=== PATIENT | male | born 1960 | race Caucasian/White ===

== ENCOUNTER 2023-04-21 08:12 | Emergency (ER) | payer BC, SELFPAY ==
[2023-04-21] VITALS (9 sets, daily range): BP systolic 125–152; BP diastolic 62–93; PULSE 81–117; RESP 19–40; TEMP 36.6–37.6; O2SAT 90–97; BMI 27.3
--- NOTE | 2023-04-21 08:18 | ECG_ITS ---
APPROVED REPORT Exam: Resting ECG HR:109 bpm ECG Measurements Heart Rate 109 AXES NM 151 P 51 QRSd 93 QRS 59 QT 305 T 46 QTc 369 Conclusion SINUS TACHYCARDIA ABNORMAL RHYTHM ECG UNCONFIRMED REPORT Electronically signed by : Duane Yarbrough MD 04/21/2023 21:19:05
--- NOTE | 2023-04-21 08:23 | PC.NURSE ---
Dr. Howard at BS for pt eval
--- NOTE | 2023-04-21 08:25 | XR_ITS ---
PROCEDURE INFORMATION: Exam: XR Chest Exam date and time: 04/21/2023 8:27 AM Age: 62 years old Clinical indication: Pain; On breathing; Additional info: SOB, tachy TECHNIQUE: Imaging protocol: Radiologic exam of the chest. Views: 1 view. COMPARISON: No relevant prior studies available. FINDINGS: Lungs: There is opacity at the left lung base which may represent effusion and/or parenchymal disease. Pleural spaces: Unremarkable. No pleural effusion. No pneumothorax. Heart/Mediastinum: Unremarkable. No cardiomegaly. Bones/joints: Unremarkable. IMPRESSION: Left basilar opacity may represent effusion and/or parenchymal disease.
--- NOTE | 2023-04-21 08:29 | HMH.EDGENADL ---
Discharge Plan Disposition Patient Disposition: Home, Self-Care Prescriptions Prescriptions: New oxycodone 5 mg tablet 5 mg PO Q6H PRN (Reason: severe pain (scale score 7-10)) Qty: 20 0RF Referrals Follow up/Referrals: Abby Sarkar [Primary Care Provider] - See instructions Robert Grossman MD [Staff Physician] - See instructions Activity Restrictions/Add. Instructions Additional Instructions/Restrictions: At this time it was felt you are safe to be discharged home. If new or worsening symptoms please do not hesitate to return the emergency department. Please take your medications as prescribed and call and schedule an appointment with Dr. Grossman as soon as you are able. Clinical Impressions Clinical Impression: Abdominal pain, LUQ, Metastatic disease, Hematuria, Left renal mass Discharge ED Provider: Lei Howard General Adult HPI General Chief complaint: Shortness of Breath/Dyspnea Stated complaint: SOA, cough, congestion, lung pain Time Seen by Provider: 04/21/23 08:16 Mode of Arrival: Ambulatory Source of Information: Patient Limitations: No Limitations Description of Symptoms (Recalled from ER Triage Doc. by RN): Pt reports SOA, productive cough x2 days. Possible fever at home 2 days ago with chills and sweats. Pt also reports pain in L rib area with inspiration. History of Present Illness HPI narrative: Patient is a 62-year-old male with no comorbidities who presents emergency department for evaluation of respiratory distress. Onset was acute, over the last 48 hours. Cough, shortness of breath, left sided chest pain with deep inspiration. Patient is a chronic smoker, takes no medications at home. No other acute complaints at this time. Related Data Previous Rx's Medication Instructions Recorded oxycodone 5 mg tablet 5 mg PO Q6H PRN severe pain (scale 04/21/23 score 7-10) #20 tabs Allergies Allergy/AdvReac Type Severity Reaction Status Date / Time No Known Allergies Allergy Verified 04/21/23 08:28 [facility] Disclaimer: The information contained in this section may have been updated after the patient was seen, as this information can be updated by other users. Social History Smoking Status: Current every day smoker alcohol intake: never current occupational status: other Travel in the last 8 weeks: None ROS Obtained: Yes All systems reviewed & no additional complaints except as documented Physical Exam General General appearance: alert and in no apparent distress Head Head exam: atraumatic and normocephalic Eye Eye exam: Present PERRL and EOMI ENT ENT exam: Present mucous membranes moist Neck Neck exam: Present normal inspection Chest Chest inspection: Present normal inspection and symmetric chest wall rise Respiratory Respiratory exam: Present respiratory distress, wheezes, accessory muscle use, prolonged expiratory phase and other (Tachypnea) Cardiovascular Cardiovascular exam: Present normal rhythm and tachycardia Abdominal Exam Abdominal exam: Present soft and tenderness (Mild, left upper quadrant) Extremities Exam Extremities exam: Present normal inspection and other (No pitting edema) Neurological Exam Neurological exam: Present alert Psychiatric Psychiatric exam: Present normal affect Skin Skin exam: Present warm and dry Medical Decision Making Barry Inquiry Pt receiving controlled substance: No Vital Signs: 04/21/23 08:13 04/21/23 08:30 04/21/23 09:30 Temperature 99.6 F Temperature Source Oral Pulse Rate 105 H 117 H Pulse Rate [Right Radial] 107 H Respiratory Rate 40 H 40 H 21 Blood Pressure 134/83 136/82 Blood Pressure [Right Arm] 152/93 H Blood Pressure Mean [Right Arm] 112 Blood Pressure Source [Right Arm] Automatic Cuff Blood Pressure Position [Right Arm] Sitting 02 Sat by Pulse Oximetry 90 L 95 95 Oxygen Delivery Method Room Air Nasal Cannula Nasal Cannula Oxygen Flow Rate (LPM) 2 2 04/21/23 10:01 04/21
--- NOTE | 2023-04-21 08:29 | PC.NURSE ---
notified RT of vbg order or neb treatments
--- NOTE | 2023-04-21 08:31 | PC.NURSE ---
RAD at for CXR
--- NOTE | 2023-04-21 08:34 | PC.NURSE ---
RT at BS to administer neb treatment
[2023-04-21 08:38] LABS: Coronavirus 19, PCR Not Detected (NotDetected); Influenza A, PCR Not Detected (NotDetected); Influenza B, PCR Not Detected (NotDetected)
[2023-04-21 08:41] LABS: Basophils % 0.2 % (0.1-2.0); Eosinophils % 0.2 % (0.1-12.0); Hematocrit 39.4 % (42.0-52.0); Hemoglobin 12.5 g/dL (14.1-18.0); Lymphocytes # 1.4 K/mm3 (0.7-4.5); Lymphocytes % 9.4 % (10-50); Mean Corpuscular HGB Conc 31.8 g/dL (31.8-35.4); Mean Corpuscular Hemoglobin 25.4 pg (27.0-31.2); Mean Corpuscular Volume 79.9 fl (80-94); Mean Platelet Volume 7.8 fl (7.4-10.4); Monocytes # 1.1 K/mm3 (0.1-1.0); Monocytes % 7.7 % (1.7-9.3); Neutrophils # 11.9 K/mm3 (1.8-7.8); Neutrophils % 82.5 % (37.0-80.0); Platelet Count 434 K/mm3 (142-424); Red Blood Count 4.93 M/mm3 (4.60-6.20); Red Cell Distribution Width 16.3 % (11.5-17.5); White Blood Count 14.4 K/mm3 (4.8-10.8)
[2023-04-21 08:45] LABS: VBG Base Excess -3.2 mmol/L (-2.4-2.3); VBG HCO3 22.1 mmol/L (23-30); VBG Oxygen Saturation 81.9 % (50-70); VBG PCO2 39.1 mmol/L (35-51); VBG PH 7.37 mmol/L (7.31-7.41); VBG PO2 45.4 mmol/L (28-40); VBG Total CO2 23.3 mmol/L (23-27)
--- NOTE | 2023-04-21 08:45 | CT_ITS ---
PROCEDURE INFORMATION: Exam: CTA Chest With Contrast Exam date and time: 04/21/2023 10:27 AM Age: 62 years old Clinical indication: Shortness of breath; Additional info: Cp/nita TECHNIQUE: Imaging protocol: Computed tomographic angiography of the chest with contrast. Exam focused on the arteries. 3D rendering (Not supervised by radiologist): MIP and/or 3D reconstructed images were created by the technologist. Radiation optimization: All CT scans at this facility use at least one of these dose optimization techniques: automated exposure control; mA and/or kV adjustment per patient size (includes targeted exams where dose is matched to clinical indication); or iterative reconstruction. Contrast material: ISOVUE; Contrast volume: 70 ml; Contrast route: INTRAVENOUS (IV); REPORTING DATA: Count of CT and Cardiac NM exams in prior 12 months: This patient has received 0 known CTs and 0 known cardiac nuclear medicine studies in the 12 months prior to the current study. COMPARISON: CR XR CHEST PORTABLE 04/21/2023 8:27 AM FINDINGS: Pulmonary arteries: There is somewhat suboptimal enhancement of the pulmonary arterial tree. No central or lobar filling defect is identified. Aorta: Unremarkable. No aortic aneurysm. No aortic dissection. Lungs: There is atelectasis noted at the left lung base. There is a 6 mm calcified granuloma in the right lower lobe along the diaphragm. In the left lower lobe there is an 11 x 8 mm noncalcified nodule. Pleural spaces: Unremarkable. No pneumothorax. No pleural effusion. Heart: Unremarkable. No cardiomegaly. No pericardial effusion. Coronary arteries: Coronary artery calcification is present. Lymph nodes: No thoracic lymphadenopathy is identified. Left hilar calcification likely represents granulomatous disease. Bones/joints: Degenerative changes are noted in the bones. Upper abdomen: There are multiple necrotic masses noted in the left upper quadrant, most notably inseparable from the left kidney which is incompletely imaged measuring at least 10.8 x 8.1 cm which appears to encase the renal artery. There is invading the inferior aspect of the spleen a macrolobulated necrotic mass measuring 10.1 x 8.2 x 11.2 cm. In the pancreatic tail there is a 3.5 x 3.3 x 3.0 cm mass. There is a 3.4 x 2.9 x 4.2 cm nodule. Celiac lymphadenopathy is noted measuring up to 13 mm in maximum short axis dimension. Multiple hepatic cysts are noted. IMPRESSION: Suboptimal assessment for pulmonary embolism. No central filling defect. Left basilar atelectasis. Left upper quadrant findings compatible with malignancy including macrolobulated enhancing and necrotic masses inseparable from the left kidney, spleen, pancreatic tail and left adrenal as well as celiac lymphadenopathy. 11 mm left lower lobe pulmonary nodule concerning for metastatic disease given the findings in the left upper quadrant. THIS REPORT CONTAINS FINDINGS THAT MAY BE CRITICAL TO PATIENT CARE. The findings were verbally communicated via telephone conference with JOSÉ JACKSON at 10:52 AM EST on 04/21/2023. The findings were acknowledged and understood. COMMENTS: Consistent with the [place]'s Incidental Findings Committee white paper (J Am Alessandro Radiol 2018): Any incidental renal lesion less than 1 cm or classified as too small to characterize, or any incidental cystic renal lesion characterized as simple-appearing, is likely benign. No follow-up imaging is recommended for these lesions per consensus recommendations based on imaging criteria.
[2023-04-21 08:47] LABS: Alanine Aminotransferase 29 U/L (12-78); Alkaline Phosphatase 124 U/L (38-126); Anion Gap 14.5 mEq/L (5-15); Aspartate Amino Transferase 37 U/L (17-59); Bilirubin,Total 0.8 mg/dl (0.2-1.3); Blood Urea Nitrogen 16 mg/dl (9-20); Calcium 9.2 mg/dl (8.4-10.2); Carbon Dioxide 26 mmol/L (22.0-30.0); Chloride 98 mmol/L (98-107); Creatinine Clearance Estimated 76 mL/min (50-200); Estimated Glomerular Filt Rate 61 ml/min (>60); GFR (African American) 74 ML/MIN (>60); Globulin 3.9 g/dL (1.3-3.2); Glucose 115 mg/dl (74-100); Lactic Acid 1.1 mmol/L (0.7-2.1); Potassium 3.5 mmoL/L (3.5-5.1); Sodium 135 mmol/L (136-145); Total Protein,Serum 7.9 g/dl (6.3-8.2)
--- NOTE | 2023-04-21 08:51 | PC.NURSE ---
Lab at bedside collecting 2nd set of blood cultures. I placed blue arm band on pt.
[2023-04-21 08:52] LABS: D-Dimer 2.42 ug/mL (0.0-0.5)
[2023-04-21 09:00] LABS: NT Pro Brain Natriuretic Pep. 457 pg/mL (0-125)
--- NOTE | 2023-04-21 09:11 | PC.NURSE ---
Pt gone to RAD via wheelchair
--- NOTE | 2023-04-21 09:17 | PC.NURSE ---
Pt returned from RAD to be pre-medicated before his CT
[2023-04-21 09:24] LABS: Troponin I < 0.01 ng/ml (0.00-0.034)
--- NOTE | 2023-04-21 10:21 | PC.NURSE ---
Pt going to RAD via wheelchair
--- NOTE | 2023-04-21 10:49 | CT_ITS ---
PROCEDURE INFORMATION: Exam: CT Abdomen And Pelvis With Contrast Exam date and time: 04/21/2023 11:19 AM Age: 62 years old Clinical indication: Abdominal pain; Additional info: Luq pain, abnl imaging TECHNIQUE: Imaging protocol: Computed tomography of the abdomen and pelvis with contrast. Radiation optimization: All CT scans at this facility use at least one of these dose optimization techniques: automated exposure control; mA and/or kV adjustment per patient size (includes targeted exams where dose is matched to clinical indication); or iterative reconstruction. Contrast material: ISOVUE; Contrast volume: 75 ml; Contrast route: IV; REPORTING DATA: Count of CT and Cardiac NM exams in prior 12 months: This patient has received 0 known CTs and 0 known cardiac nuclear medicine studies in the 12 months prior to the current study. COMPARISON: CT ANGIO CHEST PE PROTOCOL 04/21/2023 10:27 AM FINDINGS: Lungs: 9 mm pulmonary nodule left lower lung zone again noted. Scattered subsegmental atelectasis left lung base unchanged. Diaphragm: Small hiatal hernia. Liver: Multiple hypodensities within the liver many of which represent benign liver cysts. There are smaller lesions too small to adequately characterize at this time. Gallbladder and bile ducts: Normal. No calcified stones. No ductal dilation. Pancreas: 3 cm circumscribed mass arising from the tail the pancreas with some internal the [place] cysts or cystic degeneration that may also be metastatic in nature with primary pancreatic malignancy to be excluded. Spleen: Normal. No splenomegaly. Adrenal glands: 4 cm circumscribed heterogeneous left adrenal mass likely metastatic in nature. Right adrenal gland is unremarkable. Kidneys and ureters: 10 cm irregular shaped heterogeneous left renal mass with areas of cystic degeneration or necrosis arising from the mid-upper pole consistent with renal cell carcinoma. There is some adjacent perinephric nodularity likely metastatic in nature. Right kidney is unremarkable. Stomach and bowel: Unremarkable. No obstruction. No mucosal thickening. Appendix: No evidence of appendicitis. Intraperitoneal space: Unremarkable. No free air. No significant fluid collection. Vasculature: Unremarkable. No abdominal aortic aneurysm. Lymph nodes: Mild-moderate retroperitoneal lymphadenopathy measuring up to 2 cm likely metastatic in nature. Urinary bladder: Unremarkable as visualized. Reproductive: Unremarkable as visualized. Bones/joints: There are no acute bony abnormalities or suspicious bone lesions detected. Soft tissues: Unremarkable. Other findings: 11 cm irregular shaped necrotic mass anterior to the spleen likely metastatic in nature. IMPRESSION: 1. 10 cm necrotic left renal mass highly suspicious for renal cell carcinoma with evidence of perinephric metastasis. 2. Large necrotic mass left upper quadrant anterior to the spleen likely metastatic in nature. 3. 3 cm circumscribed mass arising the tail the pancreas that may be primary or metastatic in nature. 4. 4 cm left adrenal mass likely metastatic in nature. 5. Mild-moderate retroperitoneal lymphadenopathy also likely metastatic in nature. 6. Multiple benign-appearing liver cysts with additional smaller hypodensities within the liver too small to adequately characterize at this time. 7. 9 mm pulmonary nodule left lower lobe possibly metastatic in nature. COMMENTS: Consistent with the [employer]'s Incidental Findings Committee white paper (J Am Alessandro Radiol 2018): Any incidental renal lesion less than 1 cm or classified as too small to characterize, or any incidental cystic renal lesion characterized as simple-appearing, is likely benign. No follow-
--- NOTE | 2023-04-21 10:52 | PC.NURSE ---
ER MD Howard spoke with Vrad at this time
--- NOTE | 2023-04-21 10:54 | PC.NURSE ---
ER MD Howard at discussing POC and test results with pt and family member
--- NOTE | 2023-04-21 10:58 | PC.NURSE ---
notified rad staff of new ct order on pt
[2023-04-21 11:04] LABS: Uric Acid 3.9 mg/dl (3.5-8.5)
[2023-04-21 11:07] LABS: C-Reactive Protein 229.8 mg/L (0-4)
--- NOTE | 2023-04-21 11:17 | PC.NURSE ---
Pt gone to RAD via wheelchair
[2023-04-21 11:27] LABS: Microscopic, Urine URINE MICROSCOPIC (MICROSCOPIC)
[2023-04-21 11:48] LABS: Appearance,Urine CLEAR (Clear); Bilirubin,Urine Negative (Negative); Blood, Urine 2+ (Negative); Color,Urine YELLOW (Yellow); Glucose,Urine (UA) Negative (Negative); Ketones,Urine Negative (Negative); Leukocyte Esterase,Urine Negative (Negative); Nitrate,Urine Negative (Negative); Protein,Urine TRACE (Negative); Specific Gravity, Urine <= 1.005 (1.005-1.030); Urobilinogen,Urine 0.2 EU/dl (0.2)
[2023-04-21 11:49] LABS: Bacteria,Urine 1+ /lpf; RBC,Urine 20-50 #/hpf (0-3); Squamous Epithelial Cell,Urine Occasional #/hpf (0-5); WBC,Urine Occasional #/hpf (0-3)
[2023-04-21 12:01] LABS: Lactate Dehydrogenase 230 U/L (313-618)
[2023-04-21 12:18] LABS: Troponin I < 0.01 ng/ml (0.00-0.034)
--- NOTE | 2023-04-21 12:21 | PC.NURSE ---
Spoke with Ernestina at [facility]. Advised she would get the information to the provider and call back.
--- NOTE | 2023-04-21 12:44 | PC.NURSE ---
Dr. Howard speaking with Dr. Mendez at for possible pt transfer
--- NOTE | 2023-04-22 18:01 | PC.NURSE ---
Addendum entered by Kenzie Villeda RN 04/22/23 18:07: reported to Dr. Howard that pt is feeling great, better than he has in months , reports pain medication is helping. Original Note: 1610-Dr. Howard notified of positive preliminary blood cultures on pt. approx 1640- Dr. Howard spoke with pt via phone, Dr. Howard reports verbalized understanding of results and recommendations.
--- NOTE | 2023-04-28 11:00 | PC.NURSE ---
final bc results showed clostridium perfringens, contacted pt, spoke with who states they have had repeat bc drawn on the at that time they switched antibiotic to clindamycin and are fu with PCP on Sunday, aware, no further action.
== END 2023-04-21 14:05 | disposition home or self-care (01) ==
PROVIDERS: Emergency Provider Emergency Medicine; PCP Nurse Practitioner Family
DX: R06.03 Acute respiratory distress (principal); R10.12 Left upper quadrant pain; R06.02 Shortness of breath; R09.1 Pleurisy; R00.0 Tachycardia, unspecified; R93.5 Abnormal findings on diagnostic imaging of other abdominal regions, including retroperitoneum; N28.89 Other specified disorders of kidney and ureter; R31.9 Hematuria, unspecified; R91.8 Other nonspecific abnormal finding of lung field; R05.9 Cough, unspecified; R09.81 Nasal congestion; F17.210 Nicotine dependence, cigarettes, uncomplicated
CPT/HCPCS: 36415; 71045; 71275; 74177; 80053; 81001; 82803; 83605; 83615; 83880; 84484; 84550; 85025; 85378; 86140; 87040; 87636; 93005; 96365; 96367; 96375; 99285; J0456; J0696; Q9967

== ENCOUNTER 2023-04-22 19:07 | Emergency (ER) | payer BC, SELFPAY ==
--- NOTE | 2023-04-22 19:26 | HMH.EDGENADL ---
Discharge Plan Disposition Patient Disposition: Home, Self-Care Prescriptions Prescriptions: New clindamycin HCl 150 mg capsule 450 mg PO Q6H 10 Days Qty: 120 0RF No Action oxycodone 5 mg tablet 5 mg PO Q6H PRN (Reason: severe pain (scale score 7-10)) Qty: 20 0RF azithromycin 500 mg tablet See Rx Instructions .ROUTE .COMPLEX Qty: 9 0RF Rx Instructions: For 250 mg dose pack: take 500 mg today (day 1), then 250 mg for 4 days (days 2-5) albuterol sulfate 90 mcg/actuation HFA aerosol inhaler 4 inh inhalation Q4H PRN (Reason: shortness of breath or wheezing) Qty: 8.5 0RF Rx Instructions: until breathing returns to target peak flow/parameters [id number]-[id number]-XM [Bromfed DM] 2-30-10 mg/5 mL syrup 5 ml PO Q6H PRN (Reason: cold symptoms) Qty: 118 0RF Referrals Follow up/Referrals: Abby Sarkar [Primary Care Provider] - See instructions Activity Restrictions/Add. Instructions Additional Instructions/Restrictions: It was recommended that you would be admitted to the hospital today. If new or worsening symptoms please do not hesitate to return the emergency department. Please take your antibiotics as they are prescribed and follow-up with your family doctor as soon as you are able this week for continued blood work and evaluation. Clinical Impressions Clinical Impression: Bacteremia, Leukocytosis, Abnormal blood creatinine level Discharge ED Provider: Lei Howard General Adult HPI General Chief complaint: Recheck/Abnormal Lab/Rx Stated complaint: called by Dr. Hwoard -lab results Time Seen by Provider: 04/22/23 19:17 History of Present Illness HPI narrative: Patient is a 62-year-old male with recently diagnosed intra-abdominal mass who presents emergency department for positive blood cultures. I took care of Mr. Pablo last night, he presented with left upper quadrant pain where work-up was ultimately unremarkable with intra-abdominal malignancy with metastasis for which pain control was achieved and he was discharged with outpatient oncology follow-up as well as a course of azithromycin for his presumed bronchitis. Since then patient's pain has been well controlled, he states that he feels much better than yesterday. However his preliminary blood culture result shows gram-positive rods in both anaerobic bottles. Due to this I instructed him to present here for IV antibiotics until cultures have speciated. No acute complaints at this time. Related Data Previous Rx's Medication Instructions Recorded albuterol sulfate 90 mcg/actuation 4 inh inhalation Q4H PRN shortness 04/21/23 aerosol inhaler of breath or wheezing #8.5 grams azithromycin 500 mg tablet See Rx Instructions PO .COMPLEX #9 04/21/23 tabs gfqwiovkgpyemuw-fodlgdciznwclst-TL 5 ml PO Q6H PRN cold symptoms #118 04/21/23 2 mg-30 mg-10 mg/5 mL oral syrup mL (Bromfed DM) oxycodone 5 mg tablet 5 mg PO Q6H PRN severe pain (scale 04/21/23 score 7-10) #20 tabs clindamycin HCl 150 mg capsule 450 mg PO Q6H 10 days #120 caps 04/22/23 Allergies Allergy/AdvReac Type Severity Reaction Status Date / Time No Known Allergies Allergy Verified 04/21/23 08:28 [facility] Disclaimer: The information contained in this section may have been updated after the patient was seen, as this information can be updated by other users. Social History (Updated 04/21/23 @ 13:35 by Lei Howard MD) Smoking Status: Current every day smoker alcohol intake: never current occupational status: other Travel in the last 8 weeks: None ROS Obtained: Yes Systems reviewed as appropriate & no additional complaints except as documented Physical Exam General General appearance: alert and in no apparent distress Head Head exam: atraumatic and normocephalic Eye Eye exam: Present PERRL and EOMI ENT ENT exam: Present mucous membranes moist Neck Neck exam: Present normal inspection Chest Chest inspection: Presen
[2023-04-22 19:29] VITALS: RESP 18; TEMP 36.7; O2SAT 95; BMI 27.3
[2023-04-22 19:37] VITALS: BP 144/93; PULSE 88; RESP 18; TEMP 36.7; O2SAT 95
[2023-04-22 19:50] LABS: Basophils % 0.1 % (0.1-2.0); Eosinophils % 0.1 % (0.1-12.0); Hematocrit 36.8 % (42.0-52.0); Hemoglobin 12.3 g/dL (14.1-18.0); Lymphocytes # 1.9 K/mm3 (0.7-4.5); Lymphocytes % 9.1 % (10-50); Mean Corpuscular HGB Conc 33.4 g/dL (31.8-35.4); Mean Corpuscular Hemoglobin 26.6 pg (27.0-31.2); Mean Corpuscular Volume 79.7 fl (80-94); Mean Platelet Volume 8.1 fl (7.4-10.4); Monocytes # 1.3 K/mm3 (0.1-1.0); Monocytes % 6.5 % (1.7-9.3); Neutrophils # 17.1 K/mm3 (1.8-7.8); Neutrophils % 84.2 % (37.0-80.0); Platelet Count 486 K/mm3 (142-424); Red Blood Count 4.62 M/mm3 (4.60-6.20); Red Cell Distribution Width 16.4 % (11.5-17.5); White Blood Count 20.3 K/mm3 (4.8-10.8)
[2023-04-22 19:52] LABS: MANUAL DIFFERENTIAL MANUAL DIFFERENTIAL (MANUAL DIFF)
[2023-04-22 19:53] LABS: Chloride 105 mmol/L (98-107)
[2023-04-22 19:54] LABS: Sodium 142 mmol/L (136-145)
[2023-04-22 19:56] LABS: Alanine Aminotransferase 36 U/L (12-78); Alkaline Phosphatase 93 U/L (38-126); Aspartate Amino Transferase 41 U/L (17-59); Bilirubin,Total 0.2 mg/dl (0.2-1.3); Blood Urea Nitrogen 33 mg/dl (9-20); Carbon Dioxide 30 mmol/L (22.0-30.0); Creatinine Clearance Estimated 61 mL/min (50-200); Estimated Glomerular Filt Rate 47 ml/min (>60); GFR (African American) 57 ML/MIN (>60)
[2023-04-22 19:57] LABS: Albumin Level 3.7 g/dl (3.5-5.0); Calcium 9.8 mg/dl (8.4-10.2); Globulin 3.6 g/dL (1.3-3.2); Glucose 127 mg/dl (74-100); Total Protein,Serum 7.3 g/dl (6.3-8.2)
--- NOTE | 2023-04-22 19:58 | PC.NURSE ---
lab @ bedside collecting 2nd set of blood cultures
[2023-04-22 20:03] LABS: Lactic Acid 1.8 mmol/L (0.7-2.1)
--- NOTE | 2023-04-22 20:15 | PC.NURSE ---
Pt refusing to be straight stuck anymore and requested for second set of cultures to be drawn from IV
[2023-04-22 20:28] LABS: Lymphocytes % 16 % (10-50); Monocytes % 2 % (2-9); Neutrophils % 82 % (42-76); Platelet Estimate Normal; Total Cells Counted 100
[2023-04-22 20:29] LABS: RBC Morphology Normal
[2023-04-22 21:04] VITALS: BP 138/86; PULSE 75; RESP 20; O2SAT 95
[2023-04-22 21:15] VITALS: BP 124/87; PULSE 78; RESP 18; O2SAT 96
[2023-04-22 21:30] VITALS: BP 123/86; PULSE 72; O2SAT 94
--- NOTE | 2023-04-22 21:48 | PC.NURSE ---
md discussed plan of care with patient. patient elects to leave instead of being admitted as recommended. is at bedside and both agree verbally they will take oral antibiotics.
[2023-04-22 21:52] VITALS: BP 120/78; PULSE 80; RESP 18; TEMP 36.7
--- NOTE | 2023-04-23 11:16 | PC.NURSE ---
Patient family called to give a fax number for the patient referral to oncology in [facility]. F: [phone]
--- NOTE | 2023-04-25 10:57 | PC.NURSE ---
Pt's called stating pt's PCP can't see him until next week, Sunday (04/30). She was asking for ER MD to give order for labs, unfortunately per MD we can't provide outpt order. I let the know she can bring pt to ER, however she was hoping to have outpt labs. I called pt's PCP office, Abby Sarkar, and they will ask their provider if they will submit a lab order today. They will call back with their provider's answer.
== END 2023-04-22 21:58 | disposition home or self-care (01) ==
PROVIDERS: Emergency Provider Emergency Medicine; PCP Nurse Practitioner Family
DX: R78.81 Bacteremia (principal); D72.829 Elevated white blood cell count, unspecified; R79.89 Other specified abnormal findings of blood chemistry; N28.89 Other specified disorders of kidney and ureter; F17.210 Nicotine dependence, cigarettes, uncomplicated; R19.00 Intra-abdominal and pelvic swelling, mass and lump, unspecified site
CPT/HCPCS: 80053; 83605; 85007; 85025; 87040; 96365; 99284

== ENCOUNTER 2023-07-16 10:57 | Outpatient (CLI) | payer BC, SELFPAY ==
[2023-07-16] MEDS: 0.9 % SODIUM CHLORIDE 1000ML 1,000 ML 999 ML IV (11:05)
[2023-07-16 11:35] VITALS: BP 158/85; PULSE 108; RESP 18; O2SAT 94
[2023-07-16 12:11] VITALS: BP 149/95; PULSE 85; RESP 18; O2SAT 94
== END 2023-07-16 12:11 | disposition home or self-care (01) ==
LOC: INF 10:58
PROVIDERS: PCP Nurse Practitioner Family; Visit Provider Internal Medicine
DX: E86.0 Dehydration (principal)
CPT/HCPCS: 96360

== ENCOUNTER 2023-07-18 10:46 | Outpatient (CLI) | payer BC, SELFPAY ==
[2023-07-18 11:00] VITALS: BP 121/88; PULSE 104; O2SAT 95
[2023-07-18] MEDS: 0.9 % SODIUM CHLORIDE 1000ML 1,000 ML 1000 ML IV (11:00)
[2023-07-18 12:10] VITALS: BP 138/94; PULSE 91; RESP 18; O2SAT 97
== END 2023-07-18 12:10 | disposition home or self-care (01) ==
LOC: INF 10:47
PROVIDERS: PCP Nurse Practitioner Family; Visit Provider Internal Medicine
DX: E86.0 Dehydration (principal)
CPT/HCPCS: 96360

== ENCOUNTER 2023-07-20 10:47 | Outpatient (CLI) | payer BC, SELFPAY ==
[2023-07-20 11:05] VITALS: BP 120/88; PULSE 100; RESP 18; O2SAT 96
[2023-07-20] MEDS: 0.9 % SODIUM CHLORIDE 1000ML 1,000 ML 999 ML IV (11:10)
[2023-07-20 12:09] VITALS: BP 131/91
== END 2023-07-20 12:10 | disposition home or self-care (01) ==
LOC: INF 10:48
PROVIDERS: PCP Nurse Practitioner Family; Visit Provider Internal Medicine
DX: E86.0 Dehydration (principal)
CPT/HCPCS: 96360

== ENCOUNTER 2023-07-23 10:53 | Outpatient (CLI) | payer BC, SELFPAY ==
[2023-07-23] MEDS: 0.9 % SODIUM CHLORIDE 1000ML 1,000 ML 999 ML IV (11:03)
[2023-07-23 11:05] VITALS: BP 97/76; PULSE 108; RESP 17; O2SAT 94
[2023-07-23 12:12] VITALS: BP 140/72; PULSE 92; RESP 16; TEMP 36.5; O2SAT 97
== END 2023-07-23 23:59 ==
LOC: INF 10:53
PROVIDERS: PCP Nurse Practitioner Family; Visit Provider Internal Medicine
DX: E86.0 Dehydration (principal)
CPT/HCPCS: 96360

== ENCOUNTER 2023-07-25 10:37 | Outpatient (CLI) | payer BC, SELFPAY ==
[2023-07-25 10:55] VITALS: BP 117/76; PULSE 101; RESP 16; TEMP 36.8; O2SAT 97
[2023-07-25] MEDS: 0.9 % SODIUM CHLORIDE 1000ML 1,000 ML 999 ML IV (10:59)
[2023-07-25 11:59] VITALS: BP 116/79; PULSE 81; RESP 16; TEMP 36.8; O2SAT 97
== END 2023-07-25 12:00 | disposition home or self-care (01) ==
LOC: INF 10:37
PROVIDERS: PCP Nurse Practitioner Family; Visit Provider Internal Medicine
DX: E86.0 Dehydration (principal)
CPT/HCPCS: 96360

== ENCOUNTER 2023-07-30 11:02 | Outpatient (CLI) | payer BC, SELFPAY ==
[2023-07-30 11:15] VITALS: BP 93/64; PULSE 129; RESP 17; O2SAT 94
[2023-07-30] MEDS: 0.9 % SODIUM CHLORIDE 1000ML 1,000 ML 999 ML IV (11:15)
[2023-07-30 12:20] VITALS: BP 125/87; PULSE 105; RESP 19; O2SAT 96
== END 2023-07-30 12:20 | disposition home or self-care (01) ==
LOC: INF 11:02
PROVIDERS: PCP Nurse Practitioner Family; Visit Provider Internal Medicine
DX: E86.0 Dehydration (principal)
CPT/HCPCS: 96360

== ENCOUNTER 2023-08-01 10:44 | Outpatient (CLI) | payer BC, SELFPAY ==
[2023-08-01 11:00] VITALS: BP 95/64; PULSE 111; RESP 20; TEMP 36.7; O2SAT 96
[2023-08-01] MEDS: LACTATED RINGERS 1000ML 1,000 ML 999 ML IV (11:00)
[2023-08-01 12:00] VITALS: BP 100/64; PULSE 102
== END 2023-08-01 12:05 | disposition home or self-care (01) ==
LOC: INF 10:44
PROVIDERS: PCP Nurse Practitioner Family; Visit Provider Internal Medicine
DX: E86.0 Dehydration (principal); Z45.2 Encounter for adjustment and management of vascular access device; C64.2 Malignant neoplasm of left kidney, except renal pelvis
CPT/HCPCS: 96360

== ENCOUNTER 2023-08-06 10:06 | Outpatient (CLI) | payer BC, SELFPAY ==
[2023-08-06 10:15] VITALS: BP 99/68; PULSE 85; RESP 18; TEMP 36.6; O2SAT 96
[2023-08-06] MEDS: LACTATED RINGERS 1000ML 1,000 ML 1000 ML IV (10:25)
[2023-08-06 11:30] VITALS: BP 106/67; PULSE 90; RESP 18; O2SAT 96
== END 2023-08-06 11:30 | disposition home or self-care (01) ==
LOC: INF 10:06
PROVIDERS: PCP Nurse Practitioner Family; Visit Provider Internal Medicine
DX: E86.0 Dehydration (principal); C64.2 Malignant neoplasm of left kidney, except renal pelvis
CPT/HCPCS: 96360; 96365

== ENCOUNTER 2023-08-08 10:31 | Outpatient (CLI) | payer BC, SELFPAY ==
[2023-08-08 10:45] VITALS: BP 101/61; PULSE 109; RESP 18; O2SAT 96
[2023-08-08] MEDS: LACTATED RINGERS 1000ML 1,000 ML 999 ML IV (10:45)
[2023-08-08 11:48] VITALS: BP 118/68; PULSE 98; RESP 18; O2SAT 96
== END 2023-08-08 11:48 | disposition home or self-care (01) ==
PROVIDERS: PCP Nurse Practitioner Family; Visit Provider Internal Medicine
DX: E86.0 Dehydration (principal); C64.2 Malignant neoplasm of left kidney, except renal pelvis
CPT/HCPCS: 96360

== ENCOUNTER 2023-08-10 10:10 | Outpatient (CLI) | payer BC, SELFPAY ==
[2023-08-10 10:30] VITALS: BP 94/65; PULSE 101; RESP 18; O2SAT 93
[2023-08-10] MEDS: LACTATED RINGERS 1000ML 1,000 ML 999 ML IV (10:30)
[2023-08-10 11:30] VITALS: BP 94/60; PULSE 87; RESP 18
== END 2023-08-10 11:35 | disposition home or self-care (01) ==
LOC: INF 10:10
PROVIDERS: PCP Nurse Practitioner Family; Visit Provider Internal Medicine
DX: E86.0 Dehydration (principal); C64.2 Malignant neoplasm of left kidney, except renal pelvis
CPT/HCPCS: 96360

== ENCOUNTER 2023-08-13 10:18 | Outpatient (CLI) | payer BC, SELFPAY ==
[2023-08-13 10:30] VITALS: BP 93/62; PULSE 102; RESP 18; TEMP 36.7; O2SAT 97
[2023-08-13] MEDS: LACTATED RINGERS 1000ML 1,000 ML 999 ML IV (10:30)
[2023-08-13 11:40] VITALS: BP 103/72; PULSE 101; RESP 16; O2SAT 96
== END 2023-08-13 11:40 | disposition home or self-care (01) ==
LOC: INF 10:19
PROVIDERS: PCP Nurse Practitioner Family; Visit Provider Internal Medicine
DX: C64.2 Malignant neoplasm of left kidney, except renal pelvis (principal); E86.0 Dehydration
CPT/HCPCS: 96360

== ENCOUNTER 2023-08-13 11:45 | Emergency (ER) | payer BC, SELFPAY ==
[2023-08-13] VITALS (9 sets, daily range): BP systolic 102–112; BP diastolic 71–83; PULSE 68–101; RESP 15–18; TEMP 36.6; O2SAT 96–98; BMI 21.2
--- NOTE | 2023-08-13 12:30 | ECG_ITS ---
APPROVED REPORT Exam: Resting ECG HR:90 bpm ECG Measurements Heart Rate 90 AXES TN 134 P 51 QRSd 106 QRS 26 QT 324 T 60 QTc 372 Conclusion SINUS RHYTHM NONSPECIFIC T-WAVE ABNORMALITY BORDERLINE ECG Electronically signed by : JOSÉ JACKSON, 08/13/2023 16:25:27
--- NOTE | 2023-08-13 12:30 | CT_ITS ---
FINAL REPORT CLINICAL HISTORY: encephalopathy, renal cell carcinoma FINDINGS: Axial images of the head were obtained without contrast. Coronal reformatted images were also obtained.This study was performed with techniques to keep radiation doses as low as reasonably achievable (ALARA). Individualized dose reduction techniques using automated exposure control or adjustment of mA and/or kV according to the patient's size were employed. There is focal encephalomalacia involving the posterior left temporal lobe. There is no evidence of intracranial hemorrhage or mass. The ventricular size is within normal limits. There is no evidence of shift of the midline structures. No abnormal extra axial fluid collection is identified. No skull abnormality is seen on the bone window images. IMPRESSION: No acute intracranial abnormality. Reviewed, Interpreted and Dictated by Slade Chavez III, MD Transcribed by Kallie Dewitt Authenticated and [facility]
--- NOTE | 2023-08-13 12:32 | ED_ITS ---
Discharge Plan Disposition Patient Disposition: Home, Self-Care Prescriptions Prescriptions: New promethazine 25 mg tablet 25 mg PO TID PRN (Reason: nausea) Qty: 18 0RF No Action oxycodone 5 mg tablet 5 mg PO Q6H PRN (Reason: severe pain (scale score 7-10)) Qty: 20 0RF azithromycin 500 mg tablet See Rx Instructions .ROUTE .COMPLEX Qty: 9 0RF Rx Instructions: For 250 mg dose pack: take 500 mg today (day 1), then 250 mg for 4 days (days 2-5) albuterol sulfate 90 mcg/actuation HFA aerosol inhaler 4 inh inhalation Q4H PRN (Reason: shortness of breath or wheezing) Qty: 8.5 0RF Rx Instructions: until breathing returns to target peak flow/parameters vsqrodvegtfaeuf-ctjwgwukj-[id number] [Bromfed DM] 2-30-10 mg/5 mL syrup 5 ml PO Q6H PRN (Reason: cold symptoms) Qty: 118 0RF clindamycin HCl 150 mg capsule 450 mg PO Q6H 10 Days Qty: 120 0RF Referrals Follow up/Referrals: Abby Sarkar [Primary Care Provider] - See instructions Activity Restrictions/Add. Instructions Additional Instructions/Restrictions: At this time it was felt you are safe to be discharged home. If new or worsening symptoms please do not hesitate to return the emergency department. Please follow-up with your family doctor as discussed. Please take your medication as prescribed. Clinical Impressions Clinical Impression: Metastatic disease, Cachexia, Protein malnutrition Instructions Patient Instructions: DI for Altered Mental Status Discharge ED Provider: Lei Howard General Adult HPI General Chief complaint: Altered Mental Status Stated complaint: confusion, weakness Time Seen by Provider: 08/13/23 12:13 Mode of Arrival: Wheelchair Source of Information: Patient and Parent(s) Limitations: No Limitations Description of Symptoms (Recalled from ER Triage Doc. by RN): pt reports to ED for concerns of weakness and ams. pts son reports he noticed confusion this am. pt does go to infusion 3x a week for fluids. pt does have renal cell carcinoma. History of Present Illness HPI narrative: Patient is a 63-year-old male with past medical history of metastatic renal cell carcinoma not currently on therapy with estimated 3 months to live who presents emergency department for evaluation of weakness. History is obtained by patient and family at bedside. Patient was previously seeing oncology at [facility] however they have no further interventions and patient was released with expectant course given his diffuse metastatic involvement. Patient does not have any significant pain and states that when he takes steroids it alleviates the pain so he continues to take them. No chronic opiate use currently. He presented to outpatient infusion today for his lactated Ringer's due to his chronic decreased p.o. intake in the setting of metastatic disease however he has had some difficulty walking due to global weakness. He presents here for continued evaluation. Yesterday he had 1 episode of nonbloody vomiting after eating a banana. Related Data Previous Rx's Medication Instructions Recorded albuterol sulfate 90 mcg/actuation 4 inh inhalation Q4H PRN shortness 04/21/23 aerosol inhaler of breath or wheezing #8.5 grams azithromycin 500 mg tablet See Rx Instructions PO .COMPLEX #9 04/21/23 tabs wschfazfljeqtrp-cikqgqeyffcbbuk-QM 5 ml PO Q6H PRN cold symptoms #118 04/21/23 2 mg-30 mg-10 mg/5 mL oral syrup mL (Bromfed DM) oxycodone 5 mg tablet 5 mg PO Q6H PRN severe pain (scale 04/21/23 score 7-10) #20 tabs clindamycin HCl 150 mg capsule 450 mg (3 x 150 mg) PO Q6H 10 days 04/22/23 #120 caps promethazine 25 mg tablet 25 mg PO TID PRN nausea #18 tabs 08/13/23 Allergies Allergy/AdvReac Type Severity Reaction Status Date / Time No Known Allergies Allergy Verified 07/25/23 11:33 [facility] Disclaimer: The information contained in this section may have been updated after the patient was seen, as this information can be updated by other users. Medical History (Updated 08/13/23 @ 14:45 by Lei Howard MD) Bacteremia Hematuria Left renal mass Leukocytosis Metastatic disease Social History Smoking Status: Former smoker alcohol intake: never current occupational status: other Travel in the last 8 weeks: None ROS Obtained: Yes Systems reviewed as appropriate & no additional complaints except as documented Physical Exam General General appearance: alert and cachectic Head Head exam: atraumatic and normocephalic Eye Eye exam: Present PERRL and EOMI ENT ENT exam: Present mucous membranes dry Neck Neck exam: Present normal inspection Chest Chest inspection: Present normal inspection and symmetric chest wall rise Respiratory Respiratory exam: Present normal lung sounds bilaterally; Absent respiratory distress Cardiovascular Cardiovascular exam: Present regular rate and normal rhythm Abdominal Exam Abdominal exam: Present soft; Absent tenderness Extremities Exam Extremities exam: Present normal inspection Neurological Exam Neurological exam: Present alert Psychiatric Psychiatric exam: Present normal affect Skin Skin exam: Present warm and dry Medical Decision Making Barry Inquiry Pt receiving controlled substance: No Vital Signs: 08/13/23 11:46 08/13/23 11:50 08/13/23 12:00 Temperature 97.9 F Temperature Source Oral Pulse Rate 92 H 96 H Pulse Rate [Left Radial] 91 H Respiratory Rate 15 Blood Pressure 107/82 L 112/77 Blood Pressure [Right Arm] 107/82 L Blood Pressure Mean [Right Arm] 90 02 Sat by Pulse Oximetry 96 96 96 Oxygen Delivery Method Room Air Room Air Room Air 08/13/23 12:15 08/13/23 12:30 08/13/23 12:45 Temperature Temperature Source Pulse Rate 92 H 90 101 H Pulse Rate [Left Radial] Respiratory Rate Blood Pressure 108/77 L 108/82 L 103/73 L Blood Pressure [Right Arm] Blood Pressure Mean [Right Arm] 02 Sat by Pulse Oximetry 97 98 97 Oxygen Delivery Method Room Air Room Air Room Air 08/13/23 14:15 08/13/23 14:30 Temperature Temperature Source Pulse Rate 89 86 Pulse Rate [Left Radial] Respiratory Rate Blood Pressure 112/83 108/75 L Blood Pressure [Right Arm] Blood Pressure Mean [Right Arm] 02 Sat by Pulse Oximetry 97 97 Oxygen Delivery Method Lab Data Lab Results 08/13/23 12:54: WBC 14.0 H, RBC 4.69, Hgb 11.5 L, Hct 37.8 L, MCV 80.7, MCH 24.6 L, MCHC 30.5 L, RDW 20.0 H, Plt Count 513 H, MPV 7.7, Neut % (Auto) 81.8 H, Lymph % (Auto) 13.3, [place] % (Auto) 4.6, Eos % (Auto) 0.1, Baso % (Auto) 0.2, N eut # (Auto) 11.5 H, Lymph # (Auto) 1.9, [place] # (Auto) 0.6, Eos # (Auto) 0.0, Baso # (Auto) 0.0, Sodium 132 L, Potassium 4.2, Chloride 100, Carbon Dioxide 31 H, Anion Gap 5.2, BUN 32 H, Creatinine 1.00, Estimated Creat Clear 68, Estimated GFR 75, Est GFR ( Amer) 91, Glucose 120 H, Calcium 10.7 H, Magnesium 2.4 H, Total Bilirubin 0.3, AST 33, ALT 39, Alkaline Phosphatase 125, Total Protein 6.1 L, Albumin 2.8 L, Globulin 3.3 H, Albumin/Globulin Ratio 0.8 L, Urine Color Beatrice, Urine Appearance Sl cloudy, Urine pH 5.5, Ur Specific [place] >= 1.030, Urine Protein 1+, Urine Glucose (UA) Negative, Urine Ketones Negative, Urine Blood 1+, Urine Nitrate Negative, Urine Bilirubin Negative, Urine Urobilinogen 1.0, Ur Leukocyte Esterase Negative, Urine RBC 3-5, Urine WBC None, Ur Squamous Epith Cells Occasional, Urine Bacteria Trace 08/13/23 12:55: SARS-CoV-2 (PCR) Not detected, Influenza A Untype (PCR) Not detected, Influenza Type B (PCR) Not detected 08/13/23 12:54 08/13/23 12:54 Orders (Tests/Meds): ED MEDICATIONS Discontinued Medications Generic Name Dose Route Start Last Admin Trade Name Freq PRN Reason Stop Dose Admin Lactated Ringer's 1,000 mls @ 999 mls/hr 08/13/23 12:31 08/13/23 13:00 Lactated Ringer's 1000 Ml Bag IV 08/13/23 13:31 999 mls/hr .Q1H1M ONE Administration Ondansetron HCl 4 mg 08/13/23 12:31 08/13/23 13:00 Ondansetron 4mg/2ml Vial IV 08/13/23 12:32 4 mg ONCE ONE Administration ORDERS Category Date Time Status CT head/brain wo con Stat Cat Scan 08/13/23 12:30 Completed CBC w/Auto Diff [Complete Blood Count Auto Diff] Stat Lab 08/13/23 12:54 Completed CMP [Comprehensive Metabolic Panel] Stat Lab 08/13/23 12:54 Completed MG [Magnesium] Stat Lab 08/13/23 12:54 Completed Rapid PCR Covid and Flu A/B Stat Lab 08/13/23 12:55 Completed UA [Urinalysis and Microscopic] Stat Lab 08/13/23 12:54 Completed EKG Request [ECG Request] Stat Y 08/13/23 12:30 Ordered Medical Decision Narrative: In summary patient is a 63-year-old male with past medical history described above who presents emergency department for evaluation of global weakness. Patient is hemodynamically stable nontoxic-appearing upon arrival, cachectic, chronically ill-appearing. Patient has known metastatic renal cell carcinoma for which no further management is being undertaken due to severity of disease. Patient is palliative at this point with a few months of life left projected. Workup for other causes of global weakness that can be treated in the interim will be conducted with CBC, viral swab, urinalysis. 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 Initial inventions include crystalloid bolus and Zofran. Initial workup reviewed by me, hematologic labs remarkable for persistent leukocytosis although downtrending from prior, no critical anemia, some thrombocytosis, mild hyponatremia, total protein low, hypoalbuminemia consistent with his cachectic wasting in the setting of known malignancy, viral swab negative. Urinalysis interpreted by me and not consistent with infection. Noncontrasted CT scan of the head shows no acute intracranial abnormality. Upon repeat evaluation patient was weak however no focal signs. Given this patient is appropriate for outpatient management at this time. Patient will be discharged with prescription for Phenergan. Marinol is a consideration that he will discuss with his family doctor. Critical Care Critical Care Time Critical Care Time: No
[2023-08-13 12:59] LABS: Coronavirus 19, PCR Not Detected (NotDetected); Influenza A, PCR Not Detected (NotDetected); Influenza B, PCR Not Detected (NotDetected)
[2023-08-13] MEDS: LACTATED RINGERS 1000ML 1,000 ML 999 ML IV (13:00)
[2023-08-13] MEDS: ONDANSETRON 4MG/2ML VIAL 4 MG IV (13:00)
[2023-08-13 13:01] LABS: Microscopic, Urine URINE MICROSCOPIC (MICROSCOPIC)
[2023-08-13 13:07] LABS: Basophils % 0.2 % (0.1-2.0); Eosinophils % 0.1 % (0.1-12.0); Hematocrit 37.8 % (42.0-52.0); Hemoglobin 11.5 g/dL (14.1-18.0); Lymphocytes # 1.9 K/mm3 (0.7-4.5); Lymphocytes % 13.3 % (10-50); Mean Corpuscular HGB Conc 30.5 g/dL (31.8-35.4); Mean Corpuscular Hemoglobin 24.6 pg (27.0-31.2); Mean Corpuscular Volume 80.7 fl (80-94); Mean Platelet Volume 7.7 fl (7.4-10.4); Monocytes # 0.6 K/mm3 (0.1-1.0); Monocytes % 4.6 % (1.7-9.3); Neutrophils # 11.5 K/mm3 (1.8-7.8); Neutrophils % 81.8 % (37.0-80.0); Platelet Count 513 K/mm3 (142-424); Red Blood Count 4.69 M/mm3 (4.60-6.20)
[2023-08-13 13:09] LABS: Appearance,Urine SL CLOUDY (Clear); Blood, Urine 1+ (Negative); Color,Urine AMBER (Yellow); Glucose,Urine (UA) Negative (Negative); Ketones,Urine Negative (Negative); Leukocyte Esterase,Urine Negative (Negative); Nitrate,Urine Negative (Negative); PH,Urine 5.5 (5.0-8.5); Protein,Urine 1+ (Negative); Specific Gravity, Urine >= 1.030 (1.005-1.030)
[2023-08-13 13:12] LABS: Bilirubin,Urine Negative (Negative)
[2023-08-13 13:34] LABS: Bacteria,Urine Trace /lpf; Squamous Epithelial Cell,Urine Occasional #/hpf (0-5)
[2023-08-13 13:49] LABS: Chloride 100 mmol/L (98-107); Potassium 4.2 mmoL/L (3.5-5.1); Sodium 132 mmol/L (136-145)
[2023-08-13 13:51] LABS: Alanine Aminotransferase 39 U/L (12-78); Aspartate Amino Transferase 33 U/L (17-59); Blood Urea Nitrogen 32 mg/dl (9-20); Creatinine Clearance Estimated 68 mL/min (50-200); Estimated Glomerular Filt Rate 75 ml/min (>60); GFR (African American) 91 ML/MIN (>60)
[2023-08-13 13:52] LABS: Albumin Level 2.8 g/dl (3.5-5.0); Albumin/Globulin Ratio 0.8 (1.1-1.8); Alkaline Phosphatase 125 U/L (38-126); Anion Gap 5.2 mEq/L (5-15); Bilirubin,Total 0.3 mg/dl (0.2-1.3); Calcium 10.7 mg/dl (8.4-10.2); Carbon Dioxide 31 mmol/L (22.0-30.0); Globulin 3.3 g/dL (1.3-3.2); Glucose 120 mg/dl (74-100); Magnesium 2.4 mg/dl (1.6-2.3); Total Protein,Serum 6.1 g/dl (6.3-8.2)
--- NOTE | 2023-08-13 14:36 | PC.NURSE ---
pt is resting in bed no need,family at bs and call light in reach
== END 2023-08-13 14:56 | disposition home or self-care (01) ==
PROVIDERS: Emergency Provider Emergency Medicine; PCP Nurse Practitioner Family
DX: R41.82 Altered mental status, unspecified (principal); R53.1 Weakness; E44.1 Mild protein-calorie malnutrition; R64 Cachexia; C64.9 Malignant neoplasm of unspecified kidney, except renal pelvis; C79.9 Secondary malignant neoplasm of unspecified site; E87.1 Hypo-osmolality and hyponatremia; D72.819 Decreased white blood cell count, unspecified; D75.839 Thrombocytosis, unspecified; Z87.891 Personal history of nicotine dependence
CPT/HCPCS: 70450; 80053; 81001; 83735; 85025; 87636; 93005; 96361; 96374; 99285; J2405

== ENCOUNTER 2023-08-15 09:58 | Outpatient (CLI) | payer BC, SELFPAY ==
[2023-08-15] MEDS: SODIUM CHLORIDE 0.9% 10ML FLUSH SYRINGE 10 ML IV (10:09)
[2023-08-15 10:10] VITALS: BP 98/67; PULSE 110; RESP 16; O2SAT 96
[2023-08-15] MEDS: LACTATED RINGERS 1000ML 1,000 ML 999 ML IV (10:10)
[2023-08-15 11:10] VITALS: BP 105/63; PULSE 84; RESP 15; O2SAT 97
== END 2023-08-15 11:15 | disposition home or self-care (01) ==
LOC: INF 09:58
PROVIDERS: PCP Nurse Practitioner Family; Visit Provider Internal Medicine
DX: E86.0 Dehydration (principal); C64.2 Malignant neoplasm of left kidney, except renal pelvis
CPT/HCPCS: 96360

== ENCOUNTER 2023-08-17 10:13 | Outpatient (CLI) | payer BC, SELFPAY ==
[2023-08-17 10:30] VITALS: BP 88/55; PULSE 112; RESP 18; TEMP 36.8; O2SAT 96
[2023-08-17] MEDS: LACTATED RINGERS 1000ML 2,000 ML 999 ML IV (10:30)
[2023-08-17 11:30] VITALS: BP 100/63; PULSE 101
[2023-08-17 12:30] VITALS: BP 106/67; PULSE 103
== END 2023-08-17 12:30 | disposition home or self-care (01) ==
LOC: INF 10:14
PROVIDERS: PCP Nurse Practitioner Family; Visit Provider Internal Medicine
DX: E86.0 Dehydration (principal); C64.2 Malignant neoplasm of left kidney, except renal pelvis
CPT/HCPCS: 96360; 96361

== ENCOUNTER 2023-08-20 10:16 | Outpatient (CLI) | payer BC, SELFPAY ==
[2023-08-20 10:30] VITALS: BP 94/56; PULSE 119; RESP 19; TEMP 36.2; O2SAT 99
[2023-08-20] MEDS: LACTATED RINGERS 1000ML 2,000 ML 999 ML IV (10:30)
[2023-08-20 12:35] VITALS: BP 103/65; PULSE 90; RESP 18; O2SAT 99
== END 2023-08-20 12:35 | disposition home or self-care (01) ==
LOC: INF 10:16
PROVIDERS: PCP Nurse Practitioner Family; Visit Provider Internal Medicine
DX: E86.0 Dehydration (principal); C64.2 Malignant neoplasm of left kidney, except renal pelvis
CPT/HCPCS: 96360; 96361

== ENCOUNTER 2023-08-22 09:58 | Outpatient (CLI) | payer BC, SELFPAY ==
[2023-08-22 10:35] VITALS: BP 100/60; PULSE 104; RESP 16; TEMP 36.7; O2SAT 96
[2023-08-22] MEDS: [UNRECOGNIZED DRUG - REMARK] 150 ML IV (10:35)
[2023-08-22 11:35] VITALS: BP 92/60; PULSE 98; RESP 16
[2023-08-22 12:35] VITALS: BP 94/58; PULSE 89; RESP 16; O2SAT 96
[2023-08-22 13:35] VITALS: BP 99/62; PULSE 91; RESP 16; O2SAT 96
[2023-08-22 14:35] VITALS: BP 88/55; PULSE 95; RESP 16
== END 2023-08-22 14:38 | disposition home or self-care (01) ==
LOC: INF 09:58
PROVIDERS: PCP Nurse Practitioner Family; Visit Provider Internal Medicine
DX: C64.2 Malignant neoplasm of left kidney, except renal pelvis (principal); Z79.899 Other long term (current) drug therapy
CPT/HCPCS: 96365; 96366

== ENCOUNTER 2023-08-24 09:45 | Outpatient (CLI) | payer BC, SELFPAY ==
[2023-08-24] MEDS: [UNRECOGNIZED DRUG - REMARK] 150 ML IV (10:14)
[2023-08-24 10:18] VITALS: BP 99/57; PULSE 105; RESP 18; O2SAT 100
[2023-08-24 12:30] VITALS: BP 116/84; PULSE 89; RESP 18; O2SAT 99
[2023-08-24 14:15] VITALS: BP 113/75; PULSE 89; RESP 19; O2SAT 98
== END 2023-08-24 14:15 | disposition home or self-care (01) ==
LOC: INF 09:45
PROVIDERS: PCP Nurse Practitioner Family; Visit Provider Internal Medicine Medical Oncology
DX: E86.0 Dehydration (principal); Z79.899 Other long term (current) drug therapy
CPT/HCPCS: 96365; 96366

== ENCOUNTER 2023-08-27 10:57 | Outpatient (CLI) | payer BC, SELFPAY ==
[2023-08-27] MEDS: LACTATED RINGERS 1000ML 2,000 ML 999 ML IV (11:00)
[2023-08-27 11:37] VITALS: BMI 17.9
[2023-08-27 11:38] VITALS: BP 92/62; PULSE 107; RESP 16; TEMP 36.8
[2023-08-27 12:00] VITALS: BP 109/63; PULSE 90
[2023-08-27 13:00] VITALS: BP 126/81; PULSE 91
== END 2023-08-27 13:10 | disposition home or self-care (01) ==
LOC: INF 10:58
PROVIDERS: PCP Nurse Practitioner Family; Visit Provider Internal Medicine
DX: E86.0 Dehydration (principal)
CPT/HCPCS: 96360; 96361

== ENCOUNTER 2023-08-29 09:45 | Outpatient (CLI) | payer BC, SELFPAY ==
[2023-08-29] MEDS: SODIUM CHLORIDE 0.9% 50ML BAG 50 ML IV (10:30)
[2023-08-29] MEDS: SODIUM CHLORIDE 0.9% 10ML FLUSH SYRINGE 10 ML IV (10:30)
[2023-08-29] MEDS: [UNRECOGNIZED DRUG - REMARK] 150 ML IV (10:30)
[2023-08-29 10:35] VITALS: BP 100/66; PULSE 121; RESP 18; O2SAT 96
[2023-08-29 11:35] VITALS: BP 99/71; PULSE 114
[2023-08-29 12:35] VITALS: BP 101/68; PULSE 113
[2023-08-29 13:35] VITALS: BP 103/74; PULSE 102
[2023-08-29 14:30] VITALS: BP 109/66; PULSE 105
== END 2023-08-29 14:40 | disposition home or self-care (01) ==
LOC: INF 09:45
PROVIDERS: PCP Nurse Practitioner Family; Visit Provider Internal Medicine
DX: E86.0 Dehydration (principal); C64.2 Malignant neoplasm of left kidney, except renal pelvis
CPT/HCPCS: 96365; 96366

== ENCOUNTER 2023-08-31 10:46 | Outpatient (CLI) | payer BC, SELFPAY ==
[2023-08-31 11:02] VITALS: BP 89/61; PULSE 119; RESP 20; O2SAT 95
[2023-08-31] MEDS: LACTATED RINGERS 1000ML 1,000 ML 999 ML IV (11:02)
[2023-08-31 13:10] VITALS: BP 111/63; PULSE 95; RESP 18; O2SAT 95
== END 2023-08-31 13:10 | disposition home or self-care (01) ==
LOC: INF 10:47
PROVIDERS: PCP Nurse Practitioner Family; Visit Provider Internal Medicine
DX: E86.0 Dehydration (principal); C64.2 Malignant neoplasm of left kidney, except renal pelvis
CPT/HCPCS: 96360; 96361

== ENCOUNTER 2023-09-03 09:54 | Outpatient (CLI) | payer BC, SELFPAY ==
[2023-09-03 10:15] VITALS: BP 107/66; PULSE 103; RESP 22; TEMP 37.2; O2SAT 95
[2023-09-03] MEDS: LACTATED RINGERS 1000ML 1,000 ML 999 ML IV ×2 (10:15→11:15)
[2023-09-03 11:15] VITALS: BP 100/69; PULSE 102
[2023-09-03 12:20] VITALS: BP 105/64; PULSE 100
== END 2023-09-03 12:20 | disposition home or self-care (01) ==
LOC: INF 09:54
PROVIDERS: PCP Nurse Practitioner Family; Visit Provider Internal Medicine
DX: E86.0 Dehydration (principal); C64.2 Malignant neoplasm of left kidney, except renal pelvis
CPT/HCPCS: 96360; 96361

== ENCOUNTER 2023-09-05 09:39 | Outpatient (CLI) | payer BC, SELFPAY ==
[2023-09-05 10:07] VITALS: BMI 18.6
[2023-09-05 10:15] VITALS: BP 103/67; PULSE 97; RESP 16; O2SAT 93
[2023-09-05] MEDS: LACTATED RINGERS 1000ML 1,000 ML 999 ML IV ×2 (10:15→11:15)
[2023-09-05 10:26] LABS: Basophils # 0.1 K/mm3 (0-0.2); Basophils % 0.3 % (0.1-2.0); Eosinophils % 0.2 % (0.1-12.0); Hematocrit 33.6 % (42.0-52.0); Lymphocytes # 2.5 K/mm3 (0.7-4.5); Mean Corpuscular HGB Conc 29.7 g/dL (31.8-35.4); Mean Corpuscular Volume 80.8 fl (80-94); Monocytes # 0.4 K/mm3 (0.1-1.0); Monocytes % 2.4 % (1.7-9.3); Neutrophils # 14.6 K/mm3 (1.8-7.8); Neutrophils % 83.1 % (37.0-80.0); Platelet Count 396 K/mm3 (142-424); Red Blood Count 4.16 M/mm3 (4.60-6.20); Red Cell Distribution Width 18.4 % (11.5-17.5); White Blood Count 17.5 K/mm3 (4.8-10.8)
[2023-09-05 10:39] LABS: Alanine Aminotransferase 19 U/L (12-78); Albumin Level 2.8 g/dl (3.5-5.0); Albumin/Globulin Ratio 0.9 (1.1-1.8); Alkaline Phosphatase 96 U/L (38-126); Anion Gap 7.6 mEq/L (5-15); Aspartate Amino Transferase 24 U/L (17-59); Bilirubin,Total 0.3 mg/dl (0.2-1.3); Blood Urea Nitrogen 30 mg/dl (9-20); Calcium 11.5 mg/dl (8.4-10.2); Carbon Dioxide 30 mmol/L (22.0-30.0); Chloride 107 mmol/L (98-107); Creatinine Clearance Estimated 63 mL/min (50-200); Estimated Glomerular Filt Rate 85 ml/min (>60); GFR (African American) 103 ML/MIN (>60); Glucose 120 mg/dl (74-100); Potassium 3.6 mmoL/L (3.5-5.1); Sodium 141 mmol/L (136-145); Total Protein,Serum 5.8 g/dl (6.3-8.2)
[2023-09-05 10:40] LABS: MANUAL DIFFERENTIAL MANUAL DIFFERENTIAL (MANUAL DIFF)
[2023-09-05 12:25] VITALS: BP 100/59; PULSE 86; RESP 16; O2SAT 93
[2023-09-05 12:33] LABS: Lymphocytes % 14 % (10-50); Monocytes % 5 % (2-9); Neutrophils % 53 % (42-76); Total Cells Counted 100
[2023-09-05 12:34] LABS: Anisocytosis 1+; Platelet Estimate Normal
[2023-09-05 12:36] LABS: Poikilocytosis 1+
[2023-09-05 12:37] LABS: Hypochromasia 1+; Target Cells 1+
[2023-09-05 12:38] LABS: Spherocytes 1+
== END 2023-09-05 12:20 | disposition home or self-care (01) ==
LOC: INF 09:40
PROVIDERS: PCP Nurse Practitioner Family; Visit Provider Internal Medicine
DX: C64.2 Malignant neoplasm of left kidney, except renal pelvis (principal); E86.0 Dehydration
CPT/HCPCS: 80053; 85007; 85025; 96365; 96366

== ENCOUNTER 2023-09-10 09:53 | Outpatient (CLI) | payer BC, SELFPAY ==
[2023-09-10] MEDS: LACTATED RINGERS 1000ML 1,000 ML 999 ML IV ×2 (10:10→11:20)
[2023-09-10 10:21] VITALS: BP 92/57; PULSE 111; O2SAT 93
[2023-09-10 12:11] VITALS: BP 92/59; PULSE 91; O2SAT 86
== END 2023-09-10 12:11 | disposition home or self-care (01) ==
LOC: INF 09:54
PROVIDERS: PCP Nurse Practitioner Family; Visit Provider Nurse Practitioner Family
DX: E86.0 Dehydration (principal)
CPT/HCPCS: 96360; 96361; 96365; 96366